=== PATIENT | male | born 1980 | race Two or more races ===

== ENCOUNTER 2024-07-19 09:39 | Emergency (ER) | payer SELFPAY ==
--- NOTE | 2024-07-19 09:48 | EKG_ITS ---
[facility] Test Date: 2024-07-19 Pat Name: REESE ROBLES Department: Room: - Gender: Male Sap Basis: : 1980 Requested By: Juan Pablo Miranda (JUAN) Order Number: [id number] Reading MD: Juan Pablo Miranda (JUAN) Measurements Intervals [place] Rate: 71 P: 48 CO: 137 QRS: 45 QRSD: 95 T: 52 QT: 363 QTc: 397 Interpretive Statements SINUS RHYTHM WITH SINUS ARRHYTHMIA No previous ECG available for comparison /[id number]/[email or web address]/[id number]
[2024-07-19 10:03] VITALS: BP 107/72; PULSE 65; RESP 16; TEMP 36.8; O2SAT 97; BMI 26.9
--- NOTE | 2024-07-19 10:05 | XR_ITS ---
Examination: PA lateral chest 2 views TECHNIQUE: Upright PA lateral chest 2 views Exam date and time: July 19, 2024 1011 hours INDICATIONS: Chest pain beginning this morning FINDINGS: Normal heart size Lungs are clear. The osseous structures are intact IMPRESSION: No active disease
--- NOTE | 2024-07-19 10:06 | PD.EDRME ---
Rapid Medical Screening Exam RME Arrival date/time: 07/19/24 09:39 43-year-old male presents emergency department complaints of chest pain Chief Complaint: Fever Vital signs: Vital Signs Temperature 98.2 F 07/19/24 10:03 Pulse Rate 65 07/19/24 10:03 Respiratory Rate 16 07/19/24 10:03 Blood Pressure 107/72 07/19/24 10:03 Pulse Oximetry (%) 97 07/19/24 10:03 Oxygen Delivery Method Room Air 07/19/24 10:03
[2024-07-19 10:22] LABS: Lactate (Lactic Acid) 0.7 mMol/L (0.4-2.0)
[2024-07-19 10:30] LABS: Basophils % (Auto) 0 % (0-2.5); Eosinophils # (Auto) 0.1 Thou/mm3 (0.0-0.5); Eosinophils % (Auto) 1 % (0-10); Immature Granulocytes % (Auto) 0 % (0-0); Immature Granulocytes Auto 0.02 Thou/mm3 (0.00-0.00); Lymphocytes # (Auto) 1.3 Thou/mm3 (1.0-4.8); Lymphocytes % (Auto) 14 % (10-50); Mean Corpuscular HGB Conc 34.8 g/dl (31.0-37.0); Mean Corpuscular Hemoglobin 29.1 pg (25.0-35.0); Mean Corpuscular Volume 84 fL (80-100); Monocytes # (Auto) 0.6 Thou/mm3 (0.0-0.8); Monocytes % (Auto) 6 % (0-12); Neutrophils # (Auto) 7.1 Thou/mm3 (1.8-7.7); Neutrophils % (Auto) 78 % (37-80); Nucleated Red Blood Cell % 0 /100 WBC (0); Platelet Count 186 Thou/mm3 (140-440); RDW Standard Deviation 39.6 fL (35.1-43.9); White Blood Count 9.1 Thou/mm3 (3.8-10.6)
[2024-07-19 10:43] LABS: Partial Thromboplastin Time 26.1 Seconds (22.0-36.0); Prothrombin Time 11.1 Seconds (9.0-12.2)
[2024-07-19] MEDS: ACETAMINOPHEN 500 MG TABLET 1000 MG PO (10:51)
[2024-07-19 11:04] LABS: Alanine Aminotransferase 15 U/L (10-49); Albumin, Serum 4.1 gm/dL (3.5-5.0); Albumin/Globulin Ratio 1.6 (1.2-2.2); Alcohol, Blood Medical < 3.0 mg/dL (0-10.0); Alkaline Phosphatase 81 U/L (46-116); Anion Gap 8 (7-16); Aspartate Amino Transferase 25 U/L (0-34); B-Type Natriuretic Peptide < 20 pg/mL (0-100); BUN/Creatinine Ratio 13 Ratio (12-20); Bilirubin,Total 1.7 mg/dL (0.3-1.2); Blood Urea Nitrogen 13 mg/dL (9-23); Calcium 8.9 mg/dL (8.3-10.6); Calcium (Corrected) 8.9 mg/dL (8.5-10.1); Chloride 103 mMol/L (98-107); Estimated Creatinine Clearance 102.4 mL/min (>60); Globulin 2.6 gm/dL (2.3-3.5); Glucose 102 mg/dL (74-106); Lipase 29 U/L (12-53); Magnesium 2.2 mg/dL (1.6-2.6); Osmolality,Calculated 275 (275-295); Potassium 3.7 mMol/L (3.4-5.1); Procalcitonin 0.21 ng/ml (0.0-0.49); Sodium 138 mMol/L (136-145); Total Protein 6.7 gm/dL (5.7-8.2); Troponin I < 0.020 ng/mL (0.0-0.045); eGFR > 60 See Note
[2024-07-19 11:44] VITALS: BP 108/73; PULSE 81; RESP 16; TEMP 36.4; O2SAT 100
--- NOTE | 2024-07-19 12:02 | PD.EDADULT ---
ED General RME/HPI General Chief complaint: Fever Stated complaint: Fever, SOB, chest pain Time Seen by Provider: 07/19/24 11:37 Arrival date/time: 07/19/24 09:39 CC: Chest pain HPI onset woke him up this morning approximately 4 AM, lasted for approximately 3 hours and then resolved spontaneously. Patient is no prior history of similar events. Patient admits that he is going through stressful time with working long hours and a divorce currently living with his mom. Patient denies fever chills shortness of breath difficulty breathing. Currently there is no chest pain whatsoever. Points to his center chest including epigastrium chest and upper abdomen. RME / HPI RME / HPI narrative: 07/19/24 09:39 43-year-old male presents emergency department complaints of chest pain Related Data Allergies Allergy/AdvReac Type Severity Reaction Status Date / Time NKA Allergy Uncoded 07/19/24 09:46 Review of Systems Review of Systems Narrative Review of Systems: GEN: No fever, no chills, no weight loss EYES: No discharge, no visual changes, no pain HEENT: No ear pain, no congestion, no sore throat PULM: No shortness of breath, no cough, no congestion CV: + chest pain, no dyspnea on exertion, no palpitations GI: No nausea, no vomiting, no diarrhea, no pain, no constipation : No frequency, no urgency, no dysuria MUSC/SKEL: No joint pain, no back pain SKIN: No rash PSYCH: No hallucinations, no depression HEME/LYMPH: No easy bleeding or bruising tendencies NEURO: No weakness, no headache Past Medical History Social History SMOKING STATUS: Never smoker ED Exam Narrative Physical exam: [General: Anxious but not in any acute distress Head normocephalic HEENT: Within acceptable limits Neck is supple nontender Chest equal chest rise nontender to palpation in all areas of the chest, no tenderness to palpation in the upper abdomen. Respiratory: Clear to auscultation no wheezes crackles or rubs CV: Rate rhythm is regular no murmurs rubs or clicks Abdomen is distended secondary to body habitus soft nontender no masses positive bowel sounds all 4 quadrants Back: No CVA tenderness no spinous process tenderness from cervical spine thoracic and lumbar spine Skin: Intact no petechiae rash induration ulceration or crepitus Extremities: Moving all extremity against resistance cap refill less than 2 seconds neurosensory intact Neuro: Awake alert oriented x3 [place]ascow coma 15 no focal deficits] Course Course Course Narrative: Heart score of 1 heart score of 1 Quality Measures none Orders Category Date Time Status EKG (ED ONLY) *Do not use* NOW Care 07/19/24 09:48 Completed EKG (ED Only) Stat Exams 07/19/24 09:48 Draft XR chest 2V Stat Exams 07/19/24 10:05 Completed Alcohol, Blood Medical Stat Lab 07/19/24 10:12 Completed B-Type Natriuretic Peptide Stat Lab 07/19/24 10:12 Completed Blood Culture (Lab) Stat Lab 07/19/24 10:07 Results CBC Stat Lab 07/19/24 10:12 Completed Comprehensive Metabolic Panel Stat Lab 07/19/24 10:12 Completed Lactic Acid [Lactate (Lactic Acid)] Stat Lab 07/19/24 10:12 Completed Lipase Stat Lab 07/19/24 10:12 Completed Magnesium Stat Lab 07/19/24 10:12 Completed Partial Thromboplastin Time Stat Lab 07/19/24 10:12 Completed Procalcitonin Stat Lab 07/19/24 10:12 Completed Prothrombin Time with INR Stat Lab 07/19/24 10:12 Completed Troponin I Stat Lab 07/19/24 10:12 Completed Acetaminophen Tab [Tylenol ES Tab] Med 07/19/24 10:05 Discontinued 1,000 mg PO X1 ONE Vital Signs Vital signs: Vital Signs Temperature 98.2 F 07/19/24 10:03 Pulse Rate 65 07/19/24 10:03 Respiratory Rate 16 07/19/24 10:03 Blood Pressure 107/72 07/19/24 10:03 Pulse Oximetry (%) 97 07/19/24 10:03 Oxygen Delivery Method Room Air 07/19/24 10:03 [facility] Patient data External records reviewed:: [facility] previous records Clinical information provided by:: patient Social determinants that could affect healthcare access:: none Patient has the following chronic illnesses:: None How is presenting disease/condition affected by chronic disease/condition?: uneffected by Evaluation data The following diagnostics were reviewed and interpreted by me:: lab results, radiology exam(s) and EKG tracing(s) Lab and/or radiology exams considered but not ordered:: EKG performed at 1001 shows a ventricular rate of 71 AK interval 137 QRS of 9 5 QTc of 386 normal sinus rhythm CBC shows no acute leukocytosis anemia thrombocytopenia CMP shows no acute electrolyte imbalances renal impairment transaminitis. T. bili elevated at 1.7. Troponin is negative BNP is negative Lipase is negative Chest x-ray is interpreted by me and read by radiology as negative for any acute finding. Alcohol is negative Interpretation Summary: I suspect this is noncardiac chest pain is completely resolved patient has no other acute findings patient will be discharged home. Medications Medications considered but not ordered:: None Medication administrations:: Medication Administration History Discontinued Medications Acetaminophen (Acetaminophen 500 Mg Tablet) 1,000 mg PO X1 ONE Stop: 07/19/24 10:06 Last Admin: 07/19/24 10:51 Dose: 1,000 mg Documented By: OA None Consultations Consultation(s) initiated? (list below): No Diagnosis Differential Diagnosis ED Complaint MDM: ACS WI pneumonia Most likely diagnosis given after review of the tests above:: Noncardiac chest pain Admission Indicated Admission indicated?: not indicated Explain why admission is indicated or not indicated:: None Admission Request Was there a request for admission?: No Disposition Plan Disposition Plan: Discharge Discharge Attestation Discharge Attestation: The patient and all family members were given an opportunity to ask questions and understood the discharge instructions. Discharge instructions specifically effects, indications for sooner follow up or return to the emergency department, and the expected course of current diagnosis. Patient condition: Stable Medical Decision Making Differential Diagnosis Differential Diagnosis: ACS WI pneumonia Lab Data 07/19/24 10:12 07/19/24 10:12 Labs: Lab Results 07/19/24 Range/Units 10:12 WBC 9.1 (3.8-10.6) Thou/mm3 RBC 5.50 (4.50-5.90) Miln/mm3 Hgb 16.0 (13.5-16.0) g/dL Hct 46.0 (41.0-53.0) % MCV 84 (80-100) fL MCH 29.1 (25.0-35.0) pg MCHC 34.8 (31.0-37.0) g/dl RDW Std Deviation 39.6 (35.1-43.9) fL Plt Count 186 (140-440) Thou/mm3 Neut % (Auto) 78 (37-80) % Lymph % (Auto) 14 (10-50) % [place] % (Auto) 6 (0-12) % Eos % (Auto) 1 (0-10) % Baso % (Auto) 0 (0-2.5) % Neut # (Auto) 7.1 (1.8-7.7) Thou/mm3 Lymph # (Auto) 1.3 (1.0-4.8) Thou/mm3 [place] # (Auto) 0.6 (0.0-0.8) Thou/mm3 Eos # (Auto) 0.1 (0.0-0.5) Thou/mm3 Baso # (Auto) 0.0 (0.0-0.2) Thou/mm3 Immature Gran # (Auto) 0.02 H (0.00-0.00) Thou/mm3 Absolute Nucleated RBC 0.00 (0.00-0.00) Thou/mm3 Immature Gran % 0 (0-0) % Nucleated RBC % 0 (0) /100 WBC PT 11.1 (9.0-12.2) Seconds INR 1.0 (0.9-1.3) APTT 26.1 (22.0-36.0) Seconds Sodium 138 (136-145) mMol/L Potassium 3.7 (3.4-5.1) mMol/L Chloride 103 (98-107) mMol/L Carbon Dioxide 27.0 (20.0-31.0) mMol/L Anion Gap 8 (7-16) BUN 13 (9-23) mg/dL Creatinine 1.0 (0.6-1.3) mg/dL Estim Creat Clear Calc 102.4 (>60) mL/min eGFR > 60 (60 - ) See Note BUN/Creatinine Ratio 13 (12-20) Ratio Glucose 102 (74-106) mg/dL Calculated Osmolality 275 (275-295) Lactic Acid 0.7 (0.4-2.0) mMol/L Calcium 8.9 (8.3-10.6) mg/dL Corrected Calcium 8.9 (8.5-10.1) mg/dL Magnesium 2.2 (1.6-2.6) mg/dL Total Bilirubin 1.7 H (0.3-1.2) mg/dL AST 25 (0-34) U/L ALT 15 (10-49) U/L Alkaline Phosphatase 81 (46-116) U/L Troponin I < 0.020 (0.0-0.045) ng/mL B-Natriuretic Peptide < 20 (0-100) pg/mL Total Protein 6.7 (5.7-8.2) gm/dL Albumin 4.1 (3.5-5.0) gm/dL Globulin 2.6 (2.3-3.5) gm/dL Albumin/Globulin Ratio 1.6 (1.2-2.2) Lipase 29 (12-53) U/L Procalcitonin 0.21 (0.0-0.49) ng/ml Ethyl Alcohol < 3.0 (0-10.0) mg/dL Discharge Plan Plan Patient Disposition: HOME (Self Care) Patient condition on transfer: Stable Problem List Clinical Impression: Chest pain Patient/Caregiver Discharge Instructions Other Activity Instructions:: Follow-up with the doctor listed above, try and reduce the stress levels that you have at this point in time if there is a recurrence of this symptoms return the emergency room for reevaluation. Education Materials: ED Chest Pain, Uncertain Cause Print Language: Estonian Stand Alone Forms: Laura Award Info., Work/School Release, Patient Portal Info Letter PA/PUBLIC SPEAKING INSTRUCTOR Supervising Physician PA/PUBLIC SPEAKING INSTRUCTOR Supervising Physician: Baylee Maldonado ENP
== END 2024-07-19 12:51 | disposition home or self-care (01) ==
PROVIDERS: Nurse Practitioner Primary Care; Emergency Provider Emergency Medicine
DX: R07.9 Chest pain, unspecified (principal)
CPT/HCPCS: 36415; 71046; 80053; 80307; 80320; 81001; 83605; 83690; 83735; 83880; 84145; 84484; 85025; 85610; 85730; 87040; 93005; 99283; A9270; G0480